=== PATIENT | female | born 1945 | race Hispanic/Latino ===

== ENCOUNTER 2021-08-08 09:01 | Emergency (ER) | payer MEDICARE ==
[~2021-08-08] VITALS: Ht 160 cm; Wt 73.9 kg
[~2021-08-08 09:01] MED LIST: CALCIUM 1,0001 EACH PO; GLUCOSAMINE PO; IBUPROFEN200 MG PO; PRAVASTATIN SOD20 MG PO; TYLENOL EXTRA500 MG PO
[2021-08-08 09:51] LABS: CLARITY,URINE CLOUDY (CLEAR); COLOR,URINE YELLOW (YELLOW); KETONES,URINE NEGATIVE (NEGATIVE); LEUKOCYTE ESTERASE ,URINE LARGE (NEGATIVE); NITRITE,URINE NEGATIVE (NEGATIVE); PROTEIN,URINE DIPSTICK 2+ (NEGATIVE); URINE UROBILINOGEN 0.2 mg/dL (0.2 - 1)
[2021-08-08 09:54] LABS: BACTERIA,URINE MODERATE /HPF; EPITHELIAL CELLS,URINE FEW /LPF; RBC,URINE >50 /HPF (0-5); WBC,URINE (MAN) >50 /HPF (0-5)
[2021-08-08] MEDS ORDERED: LIDOCAINE HCL 1% 2 ML AMP ONE (10:39)
[2021-08-08] MEDS ORDERED: CEFTRIAXONE 1 GM VIAL ONE (10:39)
[2021-08-08] MEDS ORDERED: CEFTRIAXONE 1 GM VIAL IM ONE (11:00)
== END 2021-08-08 11:01 | disposition home or self-care (01) ==
LOC: ER 09:10
DX: N39.0 Urinary tract infection, site not specified (principal); R39.89 Other symptoms and signs involving the genitourinary system; E78.5 Hyperlipidemia, unspecified
CPT/HCPCS: 81001; 87086; 87186; 99283; J0696; J2001

== ENCOUNTER 2021-10-02 10:09 | Emergency (ER) | payer MEDICARE, OTHER ==
[~2021-10-02] VITALS: Ht 160 cm; Wt 73.9 kg
[2021-10-02 11:58] VITALS: BP 115/67
[2021-10-02] MEDS ORDERED: CASIRIVIMAB/IMDEVIMAB 10 ML in SODIUM CHLORIDE 0.9% 100 ML IV ONE (12:15)
== END 2021-10-02 12:10 | disposition home or self-care (01) ==
LOC: ER 10:39
DX: S62.395A Other fracture of fourth metacarpal bone, left hand, initial encounter for closed fracture (principal); S62.397A Other fracture of fifth metacarpal bone, left hand, initial encounter for closed fracture; W01.0XXA Fall on same level from slipping, tripping and stumbling without subsequent striking against object, initial encounter; Y93.01 Activity, walking, marching and hiking; Y92.89 Other specified places as the place of occurrence of the external cause; E78.5 Hyperlipidemia, unspecified
CPT/HCPCS: 99284